=== PATIENT | female | born 1995 | race Caucasian/White ===

== ENCOUNTER 2017-10-15 21:45 | Inpatient (IN) | payer BC ==
--- NOTE | 2017-10-15 23:14 | ULT ---
RIGHT UPPER QUADRANT ULTRASOUND: 10/15/17 CLINICAL INDICATION: Right upper abdominal pain. FINDINGS: There is evidence of cholelithiasis, which are reported as mobile by the cardiovascular radiologic technologist during the exam. The liver is prominent in volume with increased echogenicity. Borderline sized gallbladder wall note d. There is no abnormal biliary ductal dilatation. Brown's sign is reported as negative. No signific ant ascites. IMPRESSION: 1. Cholelithiasis. Borderline sized gallbladder wall, approximating 3 mm. Te gallbladder is mode rately distended. Recommend clinical correlation to exclude evidence of for developing cholecystitis. 2. Hepatic steatosis. POS: KIRTI
[2017-10-15] MEDS ORDERED: Ondansetron HCl/PF 4 MG/2 ML Vial ONE (23:26)
[2017-10-15 23:29] LABS: #Basophils 0.1 thou/uL (0.0-0.2); #Eosinphils 0.2 thou/uL (0.0-0.7); #Lymphocytes 2.5 thou/uL (1.20-3.40); #Monocytes 0.6 thou/uL (0.11-0.59); #Neutrophils 5.8 thou/uL (1.40-6.50); %Basophils 0.9 % (0.0-1.0); %Eosinophils 1.8 % (0.0-10.0); %Lymphocytes 27.7 % (21.0-51.0); %Monocytes 6.3 % (0.0-10.0); %Neutrophils 63.3 % (42.0-75.0); Hemoglobin 13.9 g/dL (12.0-16.0); Mean Corpuscular Hemoglobin 28.7 pg (27.0-31.0); Mean Corpuscular Volume 84.4 fL (78.0-98.0); Mean Platelet Volume 9.8 fL (7.4-10.4); Platelet Count 210 thou/uL (130-400); RBC Distribution Width 13.6 % (11.5-14.5); Red Blood Cell (RBC) Count 4.84 mill/uL (4.20-5.40); White Blood Cell (WBC) Count 9.2 thou/uL (4.8-10.8)
[2017-10-15 23:33] LABS: Bilirubin Small (Negative); Blood, Urine Negative (Negative); Clarity CLEAR (Clear); Glucose, Urine (Dipstick) Negative (Negative); Leukocyte Trace (Negative); Nitrite Negative (Negative); Protein, Urine (Dipstick) Trace mg/dL (Neg-Trace); Specific Gravity, Urine 1.026 (1.002-1.036); pH, Urine 5.5 (5.0-9.0)
[2017-10-15 23:36] LABS: Bacteria/HPF None Seen HPF (None Seen); Hyaline Casts/LPF 0-3 HYALINE CAST LPF (0-3 Hyaline); Pathc Cast-AUWi Flag 0.29 (0-2.49)
[2017-10-15 23:38] LABS: RBC/HPF 0-3 HPF (0-3)
[2017-10-15 23:49] LABS: ALT (SGPT) 122 U/L (8-55); AST (SGOT) 86 U/L (5-34); Albumin 4.7 g/dL (3.5-5.0); Alkaline Phosphatase 109 U/L (40-150); Anion Gap 12 mmol/L (10-20); BUN (Urea Nitrogen) 7 mg/dL (7.0-18.7); Bilirubin, Total 1.2 mg/dL (0.2-1.2); Calc. Creatinine Clearance 0 mL/min (70-130); Calcium 9.5 mg/dL (7.8-10.44); Carbon Dioxide 27 mmol/L (22-29); Chloride 103 mmol/L (98-107); Estimated GFR-MDRD Greater than 90; Globulin 3.7 g/dL (2.4-3.5); Glucose 97 mg/dL (70-105); Lipase 18 U/L (8-78); Potassium 3.3 mmol/L (3.5-5.1); Protein, Total 8.4 g/dL (6.0-8.3); Sodium 139 mmol/L (136-145)
[2017-10-15 23:52] LABS: Pregnancy Test - Urine (BHCG) Negative (Negative); Pregu Control Background? CLEAR/WHITE (CLR/WHITE); Pregu Control Bar Appear? YES (CONTROL BAR); Specific Gravity 1.026 (1.002-1.036)
[2017-10-16] MEDS ORDERED: cefOXitin 2 GM in Sodium Chloride 0.9% 100 ML IVPB SCH ×2 (01:00→10:00)
[2017-10-16] MEDS ORDERED: Ondansetron HCl/PF 4 MG/2 ML Vial IVP PRN ×3 (01:45→12:53)
[2017-10-16] MEDS ORDERED: Ondansetron ODT 4 MG TAB SL PRN (01:45)
[2017-10-16] MEDS: Dextrose 5 % And 0.9 % NaCl 1,000 ML IV SCH ×2 (02:06→11:14)
[2017-10-16 02:18] VITALS: BMI 34.4
--- NOTE | 2017-10-16 07:31 | HP ---
CHIEF COMPLAINT: Right upper quadrant pain. HISTORY OF PRESENT ILLNESS: This is a 22-year-old female who presents to the ER last night with phyllis re pain in right upper quadrant after a meal. The pain has been minor for the last few days, became more severe, described as sharp, 8/10, associated with nausea, no vomiting, no fever or chills. She denies previous known history of gallstones, jaundice, pancreatitis. PAST MEDICAL HISTORY: She denies. PAST SURGICAL HISTORY: Denies. MEDICINES TAKEN DAILY: None. ALLERGIES: No known drug allergies. SOCIAL HISTORY: No smoking, alcohol or other drugs. REVIEW OF SYSTEMS: Ten system review of systems otherwise negative unless described above. FAMILY HISTORY: Noncontributory to GI malignancy or anesthetic related complication. PHYSICAL EXAMINATION: VITAL SIGNS: Blood pressure 126/56, pulse 91, respirations 18. She is afebrile. HEENT: Sclerae are anicteric. Oropharynx clear. NECK: No lymphadenopathy. CHEST: Clear. HEART: Regular rate and rhythm. ABDOMEN: Soft, but tender in the right upper quadrant with localized guarding, no rebound, no abdomi nal hernias. EXTREMITIES: No ischemia or edema to extremities. LABORATORY AND X-RAY FINDINGS: Sodium 139, potassium 3.3, creatinine 0.7. AST is elevated at 86. A LT is elevated at 122. Alkaline phosphatase normal, total bilirubin normal, lipase normal, hemoglobi n 13, platelet count is 210, white count is 9. Ultrasound shows cholelithiasis, borderline wall thickening, hepatic steatosis, bile duct normal. ASSESSMENT: Acute cholecystitis with elevated liver function tests. PLAN: Laparoscopic cholecystectomy with intraoperative cholangiogram. Risks, benefits, alternatives discussed. She gives consent. We will do this today.
[2017-10-16] MEDS ORDERED: Midazolam HCl 2 mg/2 ml Vial ONE ×2 (09:19→10:00)
[2017-10-16] MEDS ORDERED: Fentanyl 100 MCG/2 ML VIAL ONE (09:19)
[2017-10-16] MEDS ORDERED: Bupivacaine/Epinephrine 0.25% 30 ML VIAL ONE (09:42)
[2017-10-16] MEDS ORDERED: Iothalamate Meglumine 60% 50 ML VIAL FS ONE (09:42)
[2017-10-16] MEDS ORDERED: HYDROmorphone 2 MG/ML VIAL ONE (11:04)
[2017-10-16] MEDS ORDERED: SUGAMMADEX SODIUM 500 MG/5 ML VIAL ONE (11:17)
--- NOTE | 2017-10-16 11:36 | OP ---
DATE OF PROCEDURE: 10/16/2017 PREOPERATIVE DIAGNOSIS: Acute cholecystitis. POSTOPERATIVE DIAGNOSIS: Acute cholecystitis. PROCEDURE: Laparoscopic cholecystectomy with intraoperative cholangiogram. SURGEON: Dr. Segundo. ANESTHESIA: General. ESTIMATED BLOOD LOSS: Minimal. COMPLICATIONS: None. SPECIMEN: Gallbladder. FINDINGS: Acute cholecystitis, normal cholangiogram. TECHNIQUE: The patient was taken to the operating room and placed supine on the table. After genera l anesthetic was obtained, the abdomen is shaved, prepped, and draped in a sterile fashion. Curved i ncision was made below the umbilicus. Cautery was used to dissect down to and score the fascia. Abd ominal cavity entered bluntly using a Yanira clamp. Holding stitch of PDS was placed on each side of the fascia. [place] trocar was placed. High-flow pneumoperitoneum was obtained. An upper midline 5 mm port and 2 right upper quadrant 5 mm port was placed under direct visualization. Gallbladder was retracted from gallbladder fossa. Peritoneum was opened anterior and posterior inferiorly. The crit ical view triangle was seen showing only the cystic duct and cystic artery branching medial to latera l, no other branching structures. A clip was placed high on the cystic duct and a small ductotomy wa s made just proximal to that. Cholangiocatheter was brought in through a separate stab incision, nesha ed in the cystic duct and a cholangiogram was performed which shows good contrast flow into the duod enum, right and left hepatic duct system without obstruction. The cholangiocatheter was removed and 2 clips were placed proximal on the cystic duct, it was cut using laparoscopic scissors. Cystic horacio ry was taken using two clips proximal, one clip distally, and cut using laparoscopic scissors. Caute ry was used to dissect the gallbladder, gallbladder fossa. Gallbladder was placed in an Endo catch b ag and brought out through the [place]. There was no bleeding or bile in the liver bed. The right up per quadrant is infiltrated using sterile solution until returns are clear. All port sites were infi ltrated using local anesthetic. All ports were removed under camera visualization. Pneumoperitoneum was let down. PDS was used to close the fascial defect above the umbilicus. All incisions were irr igated and closed using 4-0 Monocryl and Dermabond. The patient was en route to recovery in stable c ondition. All instrument counts, needle counts, and lap counts were correct.
[2017-10-16] MEDS ORDERED: Promethazine HCl 25 MG/ML VIAL SLOW IVP PRN (11:37)
[2017-10-16] MEDS ORDERED: Promethazine HCl 25 MG/ML VIAL IM PRN ×2 (11:37→12:53)
[2017-10-16] MEDS ORDERED: D5 1/2 NS w/20 mEq KCL 1,000 ML IV SCH (12:53)
[2017-10-16] MEDS ORDERED: Mag-Al 1200 mg/1200 mg/30 ML UDCUP PO PRN (12:53)
[2017-10-16] MEDS ORDERED: HYDROcodone/Acetaminophen 10/325 mg Tablet PO PRN ×2 (12:53)
[2017-10-16] MEDS ORDERED: Dextrose 50% Abboject 50 ML SYRINGE SLOW IVP PRN (12:53)
[2017-10-16] MEDS ORDERED: hydrALAZINE 20 MG/ML VIAL SLOW IVP PRN (12:53)
[2017-10-16] MEDS ORDERED: Morphine 4 MG/ML VIAL SLOW IVP PRN (12:53)
[2017-10-16] MEDS ORDERED: Dextrose 5% in Water 1,000 ML IV PRN (12:53)
[2017-10-16] MEDS ORDERED: Calcium Carbonate 500 MG ChewTAB PO PRN (12:53)
[2017-10-16 14:42] VITALS: TEMP 98.1
[2017-10-16 15:27] VITALS: BP 109/73
--- NOTE | 2017-10-16 15:51 | RAD ---
INTRAOPERATIVE CHOLANGIOGRAM: Date: 10/16/17 HISTORY: Cholelithiasis. FINDINGS/IMPRESSION: Single spot fluoroscopic image of the right upper quadrant during an intraoperative cholangiogram dem onstrates opacification of the common duct and main hepatic ducts without definite filling defects. T here is contrast in the second portion of the duodenum. Surgical instruments are in the field of view . POS: KIRTI
[2017-10-16] MEDS ORDERED: Famotidine 20 MG TAB PO SCH (21:00)
[2017-10-16] MEDS ORDERED: Famotidine/PF 20 mg/2ml Vial SLOW IVP SCH (21:00)
== END 2017-10-16 15:50 | disposition home or self-care (01) | DRG 419 ==
LOC: ERS 21:45 → SJJU 10-16 00:05
PROVIDERS: ADMIT Surgery; ATTEND Surgery
PROC: 0FT44ZZ Resection of Gallbladder, Percutaneous Endoscopic Approach (ICD-10-PCS; principal; 2017-10-16)
PROC: BF13YZZ Fluoroscopy of Gallbladder and Bile Ducts using Other Contrast (ICD-10-PCS; 2017-10-16)
DX: K81.0 Acute cholecystitis (principal)
CPT/HCPCS: 36415; 47532; 76705; 80053; 81003; 81015; 81025; 82150; 83690; 85025; J0694; J1170; J2250; J2270; J2405; J3010; J7050; Q9961